=== PATIENT | male | born 1935 | race Two or more races ===

== ENCOUNTER → 2021-12-30 | Outpatient (CLI) | payer OTHER | LOC: LAB 09:19 → LAB SHORT 09:19 | DX: N39.0 Urinary tract infection, site not specified (principal) | CPT/HCPCS: 87077; 87086; 87186 ==

== ENCOUNTER → 2022-02-01 | Outpatient (CLI) | payer OTHER ==
[2022-02-01 19:27] LABS: BASOPHILS ABSOLUTE AUTO 0.05 K/mm3 (0.00-0.23); BASOPHILS PERCENT AUTO 1 % (0-2); EOSINOPHILS ABSOLUTE AUTO 0.14 K/mm3 (0.00-0.68); EOSINOPHILS PERCENT AUTO 2 % (0-6); Hematocrit 37.7 % (37.0-53.0); IMMATURE GRAN ABSOLUTE AUTO 0.06 K/mm3 (0.00-0.10); IMMATURE GRAN PERCENT AUTO 1 % (0-1); LYMPHOCYTES ABSOLUTE AUTO 1.46 K/mm3 (0.84-5.20); LYMPHOCYTES PERCENT AUTO 22 % (21-46); MONOCYTES ABSOLUTE AUTO 0.59 K/mm3 (0.16-1.47); MONOCYTES PERCENT AUTO 9 % (4-13); Mean Corpuscular HGB 29.8 pg (26.0-34.0); Mean Corpuscular HGB Conc 31.8 g/dL (31.5-36.5); Mean Corpuscular Volume 94 fL (80-100); Mean Platelet Volume 10.7 fL (9.1-12.4); NEUTROPHILS ABSOLUTE AUTO 4.34 K/mm3 (1.96-9.15); NEUTROPHILS PERCENT AUTO 65 % (41-73); Platelet Count 263 K/mm3 (150-400); RDW Coefficient Variation 13.7 % (11.7-14.2); RDW Standard Deviation 46.8 fL (35.1-46.3); Red Blood Cell Count 4.03 M/mm3 (4.30-5.90); White Blood Cell Count 6.64 K/mm3 (4.00-11.30)
[2022-02-01 20:07] LABS: Albumin, Blood 3.9 g/dL (3.4-5.0); Albumin/Globulin Ratio 1.1 (0.8-1.8); Bilirubin, Total 0.4 mg/dL (0.1-1.0); Bun/Creatinine Ratio 35.3 (12.0-20.0); Creatinine, Blood 1.16 mg/dL (0.60-1.20); Globulin, Blood 3.4 g/dL (2.2-4.0); Potassium, Blood 4.7 mmol/L (3.5-5.5); Total Protein, Blood 7.3 g/dL (6.4-8.2)
== END | disposition home or self-care (01) ==
LOC: LAB SHORT 10:40
PROVIDERS: Family Medicine
DX: E86.0 Dehydration (principal); R30.0 Dysuria
CPT/HCPCS: 80053; 85025; 87077; 87086; 87186

== ENCOUNTER → 2022-03-15 | Outpatient (CLI) | payer OTHER | LOC: LAB SHORT 07:30 → LAB 07:30 | DX: N39.0 Urinary tract infection, site not specified (principal) | CPT/HCPCS: 87077; 87086; 87186 ==

== ENCOUNTER 2022-05-16 18:09 | Inpatient (IN) | payer OTHER ==
[~2022-05-16] VITALS: Ht 162.6 cm; Wt 62.6 kg
[2022-05-16 22:19] LABS: Influenza A, PCR NEGATIVE (NEGATIVE); Influenza B, PCR NEGATIVE (NEGATIVE); Resp Syncytial Virus, PCR NEGATIVE (NEGATIVE); SARS-Cov-2 (COVID-19) PCR, MMC NEGATIVE (NEGATIVE)
[2022-05-16 22:28] LABS: Albumin, Blood 3.7 g/dL (3.4-5.0); Bilirubin, Total 1.2 mg/dL (0.1-1.0); Bun/Creatinine Ratio 29.7 (12.0-20.0); Calcium, Blood 8.5 mg/dL (8.5-10.1); Creatinine, Blood 1.45 mg/dL (0.60-1.20); Globulin, Blood 3.8 g/dL (2.2-4.0); Potassium, Blood 4.3 mmol/L (3.5-5.5); Total Protein, Blood 7.5 g/dL (6.4-8.2)
[2022-05-16 22:30] LABS: BASOPHILS ABSOLUTE AUTO 0.02 K/mm3 (0.00-0.23); BASOPHILS PERCENT AUTO 0 % (0-2); EOSINOPHILS ABSOLUTE AUTO 0.01 K/mm3 (0.00-0.68); EOSINOPHILS PERCENT AUTO 0 % (0-6); Hemoglobin 11.2 g/dL (13.5-17.5); IMMATURE GRAN ABSOLUTE AUTO 0.04 K/mm3 (0.00-0.10); IMMATURE GRAN PERCENT AUTO 0 % (0-1); LYMPHOCYTES ABSOLUTE AUTO 0.26 K/mm3 (0.84-5.20); LYMPHOCYTES PERCENT AUTO 3 % (21-46); MONOCYTES ABSOLUTE AUTO 0.42 K/mm3 (0.16-1.47); MONOCYTES PERCENT AUTO 4 % (4-13); Mean Corpuscular HGB 29.9 pg (26.0-34.0); Mean Corpuscular HGB Conc 32.9 g/dL (31.5-36.5); Mean Corpuscular Volume 91 fL (80-100); Mean Platelet Volume 9.4 fL (9.1-12.4); NEUTROPHILS ABSOLUTE AUTO 9.76 K/mm3 (1.96-9.15); NEUTROPHILS PERCENT AUTO 93 % (41-73); Platelet Count 197 K/mm3 (150-400); RDW Standard Deviation 46.8 fL (35.1-46.3); Red Blood Cell Count 3.75 M/mm3 (4.30-5.90); White Blood Cell Count 10.51 K/mm3 (4.00-11.30)
[2022-05-17] VITALS (7 sets, daily range): BP systolic 111–154; BP diastolic 61–91
[2022-05-17 00:41] LABS: Source, Urine Foley catheter
[2022-05-17 01:10] LABS: Appearance, Urine Cloudy (Clear); Bilirubin, Urine Neg (Neg); Blood, Urine 5+ (Neg); Color, Urine Red (P-Yellow); Glucose Qualitative, Urine Neg (Neg); Ketones, Urine 1+ (Neg); Leukocyte Esterase, Urine 2+ (Neg); Nitrite, Urine Pos (Neg); Protein, Urine 3+ (Neg); Urobilinogen, Urine 1+ (Normal); pH, Urine 6.5 (5.0-8.0)
[2022-05-17 01:42] LABS: Bacteria Few /hpf; Red Blood Cells, Urine TNTC /hpf (0-2); Squamous Epithelial Cells Rare /hpf (Few)
[2022-05-17 01:48] LABS: Bun/Creatinine Ratio 27.7 (12.0-20.0); Calcium, Blood 8.3 mg/dL (8.5-10.1); Creatinine, Blood 1.41 mg/dL (0.60-1.20); Potassium, Blood 4.4 mmol/L (3.5-5.5); Thyroid Stimulating Hormone 0.753 uIU/mL (0.360-4.800)
[2022-05-17 01:57] LABS: Hematocrit 31.9 % (37.0-53.0); Hemoglobin 10.5 g/dL (13.5-17.5); Mean Corpuscular HGB 30.2 pg (26.0-34.0); Mean Corpuscular HGB Conc 32.9 g/dL (31.5-36.5); Mean Corpuscular Volume 92 fL (80-100); Mean Platelet Volume 9.9 fL (9.1-12.4); Platelet Count 194 K/mm3 (150-400); RDW Coefficient Variation 14.1 % (11.7-14.2); RDW Standard Deviation 47.5 fL (35.1-46.3); Red Blood Cell Count 3.48 M/mm3 (4.30-5.90); White Blood Cell Count 13.82 K/mm3 (4.00-11.30)
--- NOTE | 2022-05-17 06:45 | NUR ---
SHIFT SUMMARY A/O TO SELF ONLY, STATES THE YEAR IS 1917 AND HE IS IN DRAIN. TREMULOUS, HX OF PARKINSONS. UNABLE TO OBTAIN HX OR COMPLETE MED REC AT THIS TIME. DENIES CHEST PAIN/PRESSURE. TELE SR IN THE 80S. SPO2 >92% ON 2L. BENITEZ DRAINING DARK RED URINE D/T ANATOMY AND TRAUMA FROM INSERTION. VSS, BED IN LOWEST POSITION, ALARM ON AND CALL LIGHT IN REACH. WILL CONTINUE TO MONITOR AND REPORT TO ONCOMING RN.
[2022-05-17 08:49] LABS: BASOPHILS ABSOLUTE AUTO 0.04 K/mm3 (0.00-0.23); BASOPHILS PERCENT AUTO 0 % (0-2); EOSINOPHILS PERCENT AUTO 0 % (0-6); Hematocrit 31.8 % (37.0-53.0); Hemoglobin 10.3 g/dL (13.5-17.5); IMMATURE GRAN ABSOLUTE AUTO 0.06 K/mm3 (0.00-0.10); IMMATURE GRAN PERCENT AUTO 0 % (0-1); LYMPHOCYTES ABSOLUTE AUTO 0.34 K/mm3 (0.84-5.20); LYMPHOCYTES PERCENT AUTO 3 % (21-46); MONOCYTES ABSOLUTE AUTO 1.19 K/mm3 (0.16-1.47); MONOCYTES PERCENT AUTO 9 % (4-13); Mean Corpuscular HGB 30.2 pg (26.0-34.0); Mean Corpuscular HGB Conc 32.4 g/dL (31.5-36.5); Mean Corpuscular Volume 93 fL (80-100); Mean Platelet Volume 10.5 fL (9.1-12.4); NEUTROPHILS ABSOLUTE AUTO 11.88 K/mm3 (1.96-9.15); NEUTROPHILS PERCENT AUTO 88 % (41-73); Platelet Count 197 K/mm3 (150-400); RDW Coefficient Variation 14.2 % (11.7-14.2); RDW Standard Deviation 48.8 fL (35.1-46.3); Red Blood Cell Count 3.41 M/mm3 (4.30-5.90); White Blood Cell Count 13.51 K/mm3 (4.00-11.30)
[2022-05-17] MEDS ORDERED: CARBIDOPA-LEVO1 EA15 PO (10:22)
[2022-05-17] MEDS ORDERED: FINA5 PO (10:23)
[2022-05-17] MEDS ORDERED: SEROQUEL100 MG PO (10:25)
[2022-05-17] MEDS ORDERED: DOCU100 PO (12:30)
[2022-05-17] MEDS ORDERED: AMOCLA875 PO (12:32)
--- NOTE | 2022-05-17 12:50 | NUR ---
Supportive visit this afternoon. Pt resting in bed eating lunch. Pt is pleasantly confused and engages in non sensical conversation. States "They want $20 dollars for a watch". Pt unable to elaborate and struggles with collecting his thoughts. Pt denies any concerns at this time. Offered gentle voice and supportive visit. Called and spoke with Pt's caregiver Shreya at [facility]. Shreya reports daughter Ria is medical decision maker but other instances Shreya makes decisions. Shreya report daughter Ria lives in [place]. Provided update and reviewed plan of care. Offered therapeutic listening and answered questions. Shreya reports at baseline, Pt is able to ambulate with a cane, bathes him self but needs assistance with setting shower up. Pt requires assistance with dressing and is incontinent of bladder and continent/incontinent of bowel. She reports at baseline Pt is confused but confusion has increased over the last month. Pt's fluid intake is very little and his food intake has also decreased. When Pt ambulates he takes shuffled steps. Called and left message with Pt's daughter Ria with request for a return phone call. Phone number appears to be a work number based off of recording. Ria Tracee [phone] Palliative Care will remain available with plan to discuss code status wishes and advanced care planning with daughter.
--- NOTE | 2022-05-17 14:30 | NUR ---
Case Conference Note Received call back from Pt's daughter Ria. Ria confirms being Pt's MPOA. Provided update and reviewed plan of care. Engaged in therapeutic conversation regarding Pt's code status wishes. Educated on life sustaining treatments including risks and implications to CPR. Offered therapeutic listening and answered questions. Daughter Ria reports Pt's wishes are DNR/DNI. No concerns reported at this time. Ria reports getting ready for a meeting and will call back to complete a POLST form over the phone. Spoke with Dr Elam and placed DNR order in [facility] per V/O from Dr Elam. Palliative Care will remain available.
--- NOTE | 2022-05-17 18:00 | NUR ---
PT SUMMARY: PT WITH PARKINSONS DEMENTIA, TREMULOUS ONLY ALERT AND ORIENTED TO SELF AND FAMILY. REMAINS CONFUSED BUT IS ABLE TO ANSWERS QUESTIONS APPROPRIATELY, WORKED WITH S/T/PT/OT TODAY DIET RESUMED MECHANICAL SOFT, PT TOLERATED WELL. PT AMBULATED VIA WALKER AROUND THE UNIT. PT WITH ATTEMPTS OF GETTING OUT OF BED PT SAT UP IN THE CHAIR MOST OF THE SHIFT SETTING CHAIR ALARM ON MULTIPLE TIMES, PT WAS REORIENTED, REDIRECTABLE. BENITEZ WAS REMOVED BY THE END OF THE SHIFT PT PUT OUT 950MLS OF DARK YELLOW URINE. PT DENIES ANY PAIN/DISCOMFORT, RECEIVED A BED BATH TODAY. STATUS CHANGED TO DNR PER ENRIQUE PALLIATIVE RN. DAUGHTER EDWAR POA VERIFIED BY ENRIQUE OCONNOR. PT REMAINS ON IV ABO, NS RUNNING AT 50MLS/HR. REMAINS ON 2L OF O2 VIA NASAL CANNULA SATS KEPT >92%. NO OTHER ISSUES ENCOUNTERED WILL REPORT TO ONCOMING SHIFT
[2022-05-18 03:21] VITALS: BP 173/89
[2022-05-18 04:20] LABS: BASOPHILS ABSOLUTE AUTO 0.04 K/mm3 (0.00-0.23); BASOPHILS PERCENT AUTO 1 % (0-2); EOSINOPHILS ABSOLUTE AUTO 0.14 K/mm3 (0.00-0.68); EOSINOPHILS PERCENT AUTO 2 % (0-6); Hematocrit 33.9 % (37.0-53.0); Hemoglobin 11.2 g/dL (13.5-17.5); IMMATURE GRAN ABSOLUTE AUTO 0.04 K/mm3 (0.00-0.10); IMMATURE GRAN PERCENT AUTO 1 % (0-1); LYMPHOCYTES ABSOLUTE AUTO 1.35 K/mm3 (0.84-5.20); LYMPHOCYTES PERCENT AUTO 17 % (21-46); MONOCYTES ABSOLUTE AUTO 1.38 K/mm3 (0.16-1.47); MONOCYTES PERCENT AUTO 17 % (4-13); Mean Corpuscular HGB 30.2 pg (26.0-34.0); Mean Corpuscular Volume 91 fL (80-100); Mean Platelet Volume 9.9 fL (9.1-12.4); NEUTROPHILS ABSOLUTE AUTO 5.03 K/mm3 (1.96-9.15); NEUTROPHILS PERCENT AUTO 63 % (41-73); Platelet Count 202 K/mm3 (150-400); RDW Standard Deviation 46.9 fL (35.1-46.3); Red Blood Cell Count 3.71 M/mm3 (4.30-5.90); White Blood Cell Count 7.98 K/mm3 (4.00-11.30)
--- NOTE | 2022-05-18 04:53 | NUR ---
SHIFT SUMMARY NO ACUTE CHANGES THROUGH THE NIGHT, PT IS ALERT, COOPERATIVE W/CARE, SEMI CONFUSED BUT ASKED QUESTIONS THAT PERTAIN TO WHY HE IS HERE, PT HAS NOT ATTEMPTED TO GET OOB, BED ALARM IS ON FOR SAFETY, VSS, SPO2 >95% ON 2L O2 VIA NC, OMCONTINENT OF URINE BUT WILL TELL YOU HE IS URINATING IF YOU HAPPEN TO BE AT THE BEDSIDE,ATTENDS CHANGED PRN, REPOSITIONED SELF IN BED WITH ENC, WCTM & REPORT TO DAY RN, RESTING QUIETLY AT THIS TIME,CALL LIGHT IN REACH.
[2022-05-18 05:26] LABS: Calcium, Blood 8.5 mg/dL (8.5-10.1); Creatinine, Blood 1.1 mg/dL (0.60-1.20); Potassium, Blood 4.3 mmol/L (3.5-5.5)
[2022-05-18 07:32] VITALS: BP 157/85
[2022-05-18 16:31] VITALS: BP 113/76
--- NOTE | 2022-05-18 17:41 | NUR ---
PT TRANSITIONED TO MEDICAL WITH TELE, PT TRANSFERRED TO 346 REPORT GIVEN TO ARIELLE OCONNOR. NO ACUTE CHANGE FOR THE SHIFT, PT HAS BEEN PLEASANT AND COOPERATIVE SLEPT TIL LUNCH TIME HAS BEEN UP IN THE CHAIR SINCE THEN WAS ABLE TO WORK WITH PT AMBULATED IN THE HALLWAY VIA WALKER. VITALS HAS BEEN STABLE. PT DENIES ANY PAIN/DISCOMFORT. NO OTHER ISSUES REPORTED FOR THE SHIFT, PT TO POSSIBLY DC BACK TO [facility] IF STABLE. ALL BELONGINGS SENT WITH THE PT, ACCOMPANIED VIA WHEELCHAIR FOR TRANSPORT.
--- NOTE | 2022-05-18 18:34 | NUR ---
PCU TRANSFER TO [facility] AT 1650. REPORT GIVEN BY JENNIFER. PTN HAS NS RUNNING AT 50 ML/HR. PTN WITH SOME TREMORS, BUT ABLE TO FEED SELF. ALARMS SET FOR HIS PROTECTION, BUT THIS AFTERNOON HE HAS BEEN SITTING IN HIS CHAIR. PTN IS INCONTINENT. CONTINUE TO MONITOR.
[2022-05-18 19:35] VITALS: BP 157/78
--- NOTE | 2022-05-19 04:51 | NUR ---
SHIFT SUMMARY ADMITTED FOR PNEUMONIA/SEPSIS. DNR CODE. HOME W/HH WHEN READY FOR DC. NS INFUSING @ 50 ML/HR. TELEMETRY: NSR W/PVC'S @ 87 BPM. [facility] SOFT/GRND MEAT DIET, FEEDER. RX WHOLE W/SAUCE. ON RA. STANDBY ASSIST TO BSC. INCONTINENT. PHYSICAL/OT/ST ARE ASSISTING WITH CARE. FROM [facility], EXPECTED TO DC BACK TO THERE. IV ANTIB RX ARE SCHEDULED. HX OF PARKINSONS, RECURRENT UTI'S
[2022-05-19 04:55] VITALS: BP 171/95
[2022-05-19 07:46] VITALS: BP 158/86
--- NOTE | 2022-05-19 08:00 | NUR ---
pt laying in bed with eyes closed, seems sleepy this am, washed his face and he woke up for us to eat, repositioned in bed, took po meds crushed in applesauce, lungs are clear, on r/a, no cough noted, hrr, tele in place running sr with pvc's and occ escape beats per manager monitoring, no edema noted, ppp+2, cap refill <3sec, vs stable, afebrile, iv site is clear and patent, infusing ns at 50mls/hr, btx4, abd flat soft nontender, incont of bowel/bladder, briefs in place, skin c/w/d, mawe, sba, osorio, call light in reach.
[2022-05-19] MEDS ORDERED: AMOCLA875 PO (11:17)
[2022-05-19] MEDS ORDERED: VISBIOME 112.51 EACH PO (11:18)
--- NOTE | 2022-05-19 14:31 | NUR ---
PT HAS BEEN DISCHARGED TO HOME, AMBULANCE HERE TO TRANSPORT HIM, IV X2 REMOVED INTACT, LEFT VIA GURNEY WITH TRANSPORT IN ATTENDENCE.
== END 2022-05-19 14:16 | disposition home health service (06) | DRG 871 ==
LOC: ER 18:09 → PCU 23:27 → MEDS 23:27 → PCU 05-17 00:21 → MEDS 05-18 16:49
PROVIDERS: Family Medicine; Student in an Organized Health Care Education/Training Program; ADMIT Internal Medicine
PROC: 3E03329 Introduction of Other Anti-infective into Peripheral Vein, Percutaneous Approach (ICD-10-PCS; principal; 2022-05-16)
PROC: 0T9B70Z Drainage of Bladder with Drainage Device, Via Natural or Artificial Opening (ICD-10-PCS; 2022-05-16)
DX: A41.9 Sepsis, unspecified organism (principal); G93.41 Metabolic encephalopathy; J18.9 Pneumonia, unspecified organism; J69.0 Pneumonitis due to inhalation of food and vomit; J96.01 Acute respiratory failure with hypoxia; N39.0 Urinary tract infection, site not specified; N17.9 Acute kidney failure, unspecified; T83.83XA Hemorrhage due to genitourinary prosthetic devices, implants and grafts, initial encounter; Z66 Do not resuscitate; R65.20 Severe sepsis without septic shock; G20 Parkinson's disease; F02.80 Dementia in other diseases classified elsewhere, unspecified severity, without behavioral disturbance, psychotic disturbance, mood disturbance, and anxiety; Z20.822 Contact with and (suspected) exposure to COVID-19; D64.9 Anemia, unspecified; N40.0 Benign prostatic hyperplasia without lower urinary tract symptoms; R31.9 Hematuria, unspecified; Y84.6 Urinary catheterization as the cause of abnormal reaction of the patient, or of later complication, without mention of misadventure at the time of the procedure; Z28.21 Immunization not carried out because of patient refusal
CPT/HCPCS: 0241U; 36415; 51702; 71046; 76770; 80048; 80053; 81001; 83605; 83735; 84145; 84443; 84484; 85025; 85027; 87040; 87086; 92610; 93005; 93010; 93306; 96365-59; 96367-59; 96375-59; 97161; 97165; 97530; 97535; 99285-25; A9270; J0295; J0692; J1650; J3370; J7030

== ENCOUNTER → 2022-06-07 | Outpatient (CLI) | payer OTHER ==
[~2022-06-07] MED LIST: AMOCLA875 PO; CARBIDOPA-LEVO1 EA15 PO; DOCU100 PO; FINA5 PO; SEROQUEL100 MG PO; VISBIOME 112.51 EACH PO
== END | disposition home or self-care (01) ==
LOC: LAB 12:00 → LAB SHORT 12:00
DX: R30.0 Dysuria (principal)
CPT/HCPCS: 87077; 87086; 87186

== ENCOUNTER → 2022-09-13 | Outpatient (CLI) | payer OTHER ==
[~2022-09-13] MED LIST changes: +CEPH500 PO; +Cefadroxil500 MG PO; +NITROFURANTOIN5012 PO
== END ==
LOC: LAB 18:40 → LAB SHORT 18:40
DX: R82.998 Other abnormal findings in urine (principal)
CPT/HCPCS: 87077; 87086; 87186